=== PATIENT | male | born 1990 | race Native Hawaiian/Other Pacific Islander ===

== ENCOUNTER 2018-03-04 16:42 | Emergency (ER) | payer OTHER ==
[~2018-03-04] VITALS: Ht 165.1 cm; Wt 66.7 kg
[2018-03-04] MEDS ORDERED: AZITHROMYCIN 250 MG TABLET PO ONE (17:00)
[2018-03-04] MEDS ORDERED: AZITHROMYCIN 250 MG TABLET ONE ×2 (17:05→17:08)
--- NOTE | 2018-03-04 17:08 | NUR ---
Patient discharged to home in stable conditon & brisk steady gait. Written and verbal after care instructions given to patient. Patient verbalizes understanding of instructions.
== END 2018-03-04 17:10 | disposition home or self-care (01) ==
LOC: ER 16:49
DX: J02.9 Acute pharyngitis, unspecified (principal)
CPT/HCPCS: 36415; 86403; 87070; 99284; A4663; Q0144 ×2